=== PATIENT | female | born 1960 | race Caucasian/White ===

== ENCOUNTER → 2017-11-13 16:52 | Outpatient (CLI) | payer SELFPAY ==
--- NOTE | 2017-11-13 17:08 | MRI_ITS ---
STUDY: MRI BRAIN WITH AND WITHOUT CONTRAST (ATTENTION INTERNAL AUDITORY CANALS - I.A.C.'s) REASON FOR EXAM: Female, 57 years old. Resection of left acoustic neuroma, two-year postop, total left hearing loss recheck TECHNIQUE: Standardized multiplanar fat and water weighted pulse sequences were obtained. 8 ml of Gadavist contrast material was administered intravenously for the contrast portion of the examination. COMPARISON: 12/06/2016, 10/30/2014 FINDINGS: Once again, a lobular enhancing lesion is identified in the left cerebellopontine angle that could represent recurrent or residual schwannoma. This is stable in size and configuration. It extends from the cerebellopontine angle into the porous acusticus and the proximal third of the internal auditory canal. The lesion measures approximately 11 mm wide at the level of the porus acusticus and up to 7 mm deep/transverse. Additionally, a second enhancing focus is identified in the lateral aspect of the internal auditory canal near the cochlear aperture, measuring 2 mm, also unchanged. A stable postoperative defect is noted involving the lateral aspect of the left brachium pontis measuring 10 mm. Normal size of the ventricles and extra-axial spaces for the patient's age. Normal white matter tracts of the supratentorial brain. Normal bilateral basal ganglia. Normal thalami. Normal flow voids within the major intracranial circulation suggesting patency by spin echo criteria. Normal venous enhancement. There is no extra-axial fluid accumulation. Normal sella turcica, pituitary gland, infundibular stalk, optic chiasm and hypothalamus. Normal tectal plate and pineal gland. Normal midbrain, chiquita and medulla. Normal cerebellum. Normal basal cisterns. No demonstrated orbital abnormality, within the constraints of a routine brain study. Normal visualized paranasal sinuses. Postoperative changes involving the left mastoid and occipital bones. Normal visualized soft tissue structures. Normal visualized upper cervical spine. MRI/Brain W/WO Contrast IMPRESSION: Stable lobular region of enhancement, possibly recurrent or residual schwannoma, extending from the left cerebellopontine angle into the porous acusticus and proximal third of the IAC. Stable 2 mm enhancing focus in the left lateral IAC near the cochlear aperture. No new intra-axial pathology is seen. Electronically Signed: Alphonso Estevez MD at 3:54 EDT Tel , Service support ,
== END ==
PROVIDERS: Family Provider Family Medicine; PCP Family Medicine; Visit Provider Otolaryngology
DX: D33.3 Benign neoplasm of cranial nerves (principal)
CPT/HCPCS: 70553; A9585

== ENCOUNTER → 2018-08-07 | Outpatient (CLI) | payer OTHER, SELFPAY ==
[2018-08-07 14:22] LABS: T4 Free Direct 0.82 ng/dL (0.76-1.46); Thyroid Stim Hormone (TSH) 3.36 uIU/mL (0.358-3.74)
== END | disposition home or self-care (01) ==
LOC: LAB 13:02
PROVIDERS: Family Provider Family Medicine; PCP Family Medicine; Referring Provider Family Medicine; Visit Provider Family Medicine
DX: E03.9 Hypothyroidism, unspecified (principal)
CPT/HCPCS: 36415; 84439; 84443

== ENCOUNTER → 2018-12-03 | Outpatient (CLI) | payer OTHER, SELFPAY ==
[2018-12-03 16:23] LABS: Anion Gap 4 (5-15); BUN 19 mg/dL (7-18); BUN/Creat Ratio 24.1 RATIO (10-20); Chloride 108 mmol/L (98-107); Cholesterol 167 mg/dL (200); Creatinine, Serum 0.79 mg/dL (0.55-1.02); EST Glomerular Filtration Rate 79 mL/min (>60); Est Glom Filt Rate - Afr Amer 95 mL/min (>60); Glucose 97 mg/dL (74-106); High Density Lipoprotein 80 mg/dL; Potassium 3.3 mmol/L (3.5-5.1); Sodium Level 142 mmol/L (136-145); Triglycerides 67 mg/dL; Very Low Density Lipoprotein 13 mg/dL (5-40)
[2018-12-06 13:07] LABS: HPV Reflexed? NOT INDICATED
== END | disposition home or self-care (01) ==
LOC: MFPLAB 14:28 → LABSPEC 15:24
PROVIDERS: Family Provider Family Medicine; PCP Family Medicine; Referring Provider Family Medicine; Visit Provider Family Medicine
DX: Z01.419 Encounter for gynecological examination (general) (routine) without abnormal findings (principal); Z12.4 Encounter for screening for malignant neoplasm of cervix
CPT/HCPCS: 36415; 80048; 80061; 88175; G0145

== ENCOUNTER → 2019-01-29 16:42 | Outpatient (CLI) | payer OTHER, SELFPAY ==
--- NOTE | 2019-01-29 16:44 | BI_ITS ---
MAMMOGRAPHY - BILATERAL SCREENING REASON FOR EXAM: Female, 58 years old. Routine annual screening examination. PERTINENT HISTORY: Non-contributory. Remote bilateral breast biopsies. TECHNIQUE: Digital bilateral breast bianca (3D mammographic acquisition) in the CC and MLO projections. 2-D mediolateral oblique (MLO) and craniocaudad (CC) views of both breasts were obtained. CAD: Full Field Digital Mammography with Computer Added Detection was performed. COMPARISON: Comparison is made with prior study dated February 03, 2015 and February 01, 2014. FINDINGS: Breast Composition: There are scattered areas of fibroglandular density. There are no dominant masses or suspicious calcifications. A tissue clip marker is once again seen in the upper deep medial aspect of the left breast. A tissue clip marker is also seen in the upper deep lateral aspect of the right breast. The previously seen nodular densities at the biopsy sites have decreased in size. No other significant abnormalities are identified. There has been no significant change since the prior study. BI/SCREEN MAMM (CAD) W/BIANCA BILAT IMPRESSION: Stable bilateral screening mammogram. Yearly follow-up mammogram recommended. (A) ASSESSMENT CATEGORY: BIRADS Category 2: Benign. A letter regarding these results will be sent to the patient by the facility within 30 days. Approximately 10% of breast cancers are not detected by mammography. A normal mammogram should not delay biopsy of a clinically suspicious abnormality. [id number] Electronically Signed: Rodolfo Erickson, at 8:42 EDT , Service support ,
== END ==
PROVIDERS: Family Provider Family Medicine; PCP Family Medicine; Referring Provider Family Medicine; Visit Provider Family Medicine
DX: Z12.31 Encounter for screening mammogram for malignant neoplasm of breast (principal)
CPT/HCPCS: 77063; 77067

== ENCOUNTER → 2019-10-17 15:44 | Outpatient (CLI) | payer SELFPAY ==
--- NOTE | 2019-10-17 16:01 | MRI_ITS ---
STUDY: MRI BRAIN WITH AND WITHOUT CONTRAST (ATTENTION INTERNAL AUDITORY CANALS - I.A.C.''s) REASON FOR EXAM: Female, 59 years old. H/O ACOUSTIC NEUROMA, 5 YRS POST SX, NO NEW COMPLAINTS TECHNIQUE: Standardized multiplanar fat and water weighted pulse sequences were obtained. IV DOTAREM 15CC was administered for the contrast portion of the examination. COMPARISON: 11/13/2017 FINDINGS: A stable area of nodularity and enhancement is noted extending from the left cerebellopontine angle through the porus acusticus into the lateral third of the internal auditory canal. This measures approximately 12 mm anteroposterior by 10 mm transverse by 8 mm craniocaudal. A stable small focus of enhancement is also present in the lateral cerebellopontine angle at the level of the cochlear aperture. This measures approximately 2 mm. These findings may be related to residual schwannoma. Stable cystic and likely postoperative changes involving the lateral aspect of the left brachium pontis. Stable absence of normal T2 hyperintense signal involving portions of the left labyrinth which could be related to postoperative change or persistent intralabyrinthine schwannoma. Normal size of the ventricles and extra-axial spaces for the patient''s age. Normal bilateral basal ganglia. Normal thalami. Normal flow voids within the major intracranial circulation suggesting patency by spin echo criteria. Normal venous enhancement. There is no enhancing intra-axial or extra-axial abnormality Normal sella turcica, pituitary gland, infundibular stalk, optic chiasm and hypothalamus. Normal tectal plate and pineal gland. Normal midbrain, chiquita and medulla. Normal cerebellum. Normal basal cisterns. No demonstrated orbital abnormality, within the constraints of a routine brain study. Normal visualized paranasal sinuses. Normal visualized soft tissue structures. Normal visualized upper cervical spine. MRI/Brain W/WO Contrast IMPRESSION: Stable nodularity and enhancement involving the left cerebellopontine angle and left internal auditory canal. Findings may be related to residual schwannoma. Stable loss of normal T2 hyperintensity involving portions of the left labyrinth. This could be postoperative or related to stable intralabyrinthine schwannoma. Stable cystic changes in the left brachium pontis. No evidence of acute intra-axial pathology. Electronically Signed: Alphonso Estevez MD at 17:33 EDT Tel , Service support ,
[2019-10-17 16:46] LABS: CREATININE FINGERSTICK < 0.6 mg/dL (0.55-1.02); EGFR FINGERSTICK > 60.0000 mL/min (>60)
== END ==
PROVIDERS: PCP Family Medicine; Referring Provider Otolaryngology; Visit Provider Otolaryngology
DX: H91.8X9 Other specified hearing loss, unspecified ear (principal)
CPT/HCPCS: 70553; A9575

== ENCOUNTER 2020-06-19 07:50 | Outpatient (RCR) | payer OTHER, SELFPAY ==
[2020-06-19] MEDS: COVID-19 VACC, MRNA(PFIZER)/PF 30 MCG/0.3 ML SYRINGE IM (13:20)
[2020-07-10] MEDS: COVID-19 VACC, MRNA(PFIZER)/PF 30 MCG/0.3 ML SYRINGE IM (13:13)
== END 2020-09-15 23:59 ==
LOC: IMMUN 07:50
PROVIDERS: PCP Family Medicine; Referring Provider Family Medicine; Visit Provider Family Medicine
DX: Z23 Encounter for immunization (principal)
CPT/HCPCS: 0001A; 0002A; 91300